=== PATIENT | female | born 1985 | race Caucasian/White ===

== ENCOUNTER 2017-05-15 09:35 | Day surgery (SDC) | payer SELFPAY ==
[2017-05-10 11:51] VITALS: BMI 31.4
[2017-05-15 10:22] LABS: BASO # 0.03 K/mm3 (0.0-2.0); BASO % 0.5 % (0.0-3.0); EOS # 0.4 (0.0-0.7); GRAN # 3.09 (1.4-6.5); GRAN % 51.2 % (50.0-68.0); HEMATOCRIT 39.5 % (36.0-48.0); LYMPH # 2.1 (1.2-3.4); LYMPH % 34.8 % (22.0-35.0); MEAN CELL VOLUME 84.6 fl (80.0-105.0); MEAN CORPUSCULAR HEMOGLOBIN 29.1 pg (25.0-35.0); MEAN CORPUSCULAR HGB CONC 34.4 g/dl (31.0-37.0); MEAN PLATELET VOLUME 9.6 fl (7.0-11.0); MONO # 0.4 (0.1-0.6); MONO % 6.5 % (1.0-6.0); RED CELL DISTRIBUTION WIDTH 13.4 % (11.5-14.5)
[2017-05-15 10:28] LABS: BLOOD UREA NITROGEN 11 mg/dL (7-21); CALCIUM 9.1 mg/dL (8.4-10.5); CARBON DIOXIDE 28 mmol/L (21-33); CHLORIDE 104 mmol/L (98-107); GFR AFRICAN-AMERICAN > 60; GLUCOSE,RANDOM 90 mg/dL (70-110); INR 0.99 (0.93-1.08); POTASSIUM 4.6 mmol/L (3.6-5.0); SODIUM 142 mmol/L (132-148)
--- NOTE | 2017-05-15 10:32 | CP.SDSHP ---
Same Day Surgery H & P - History Proposed Procedure: ct guided thyroid Bx. Pre-Op Diagnosis: multinodular goiter. - Previous Medical/Surgical History Misc: Other (c/section.) Pain: 0. No Pain - Allergies Allergies: Allergies florence Allergy (Severe, Verified 05/10/17 11:51) ITCHING - Physical Exam General Appearance: WNL. Vital Signs: Vital Signs 05/15/17 09:50 Temperature 98.4 F Pulse Rate 60 Respiratory 20 Rate Blood Pressure 138/62 O2 Sat by Pulse 98 Oximetry Mental Status: Alert & Oriented x3 Neuro: WNL Heart: WNL Lungs: WNL GI: WNL - Date & Time Date: 05/15/17 Time: 10:32 Short Stay Discharge - Short Stay Discharge Admitting Diagnosis/Reason for Visit: THYROID NODULE Disposition: HOME/ ROUTINE Referrals: Favian Rodriguez MD [Primary Care Provider] -
[2017-05-15] MEDS ORDERED: Midazolam 2 MG/2 ML VIAL ONE (10:52)
[2017-05-15] MEDS ORDERED: Oxycodone/Acetaminophen 5/325 mg Tab PO PRN (11:35)
[2017-05-15] MEDS ORDERED: Sodium Chloride 0.45% 1,000 ML IV SCH (11:45)
[2017-05-15 12:51] VITALS: RESP 20; TEMP 97.8
[2017-05-15 13:14] VITALS: BP 110/72; PULSE 66; O2SAT 98
--- NOTE | 2017-05-15 19:10 | US ---
PROCEDURE: Ultrasound-guided left thyroid fine needle aspiration biopsy. CLINICAL HISTORY: Goiter with multiple bilateral nodules. Dominant 4 cm left thyroid nodule. PHYSICIAN(S): Prashanth Wise M.D. TECHNIQUE: The relative risks and indications for the procedure were explained to the patient through a book jogger and consent obtained. The patient was placed supine on the stretcher with the neck extended and preliminary sonography of the thyroid performed. This revealed a diffusely enlarged thyroid with multiple large nodules. The dominant 4 cm nodules noted on the left. The neck was prepped and draped in the usual sterile fashion. Conscious sedation and monitoring were provided throughout the procedure by a nurse. 1% Xylocaine was used to anesthetize the skin and soft tissues at the access site. Three passes with a 22-gauge needle were performed under ultrasound guidance for fine needle aspiration of the 4 cm heterogeneous nodule in the left thyroid. The slides were reviewed by pathology and deemed adequate. The patient tolerated the procedure well. IMPRESSION: 1. Ultrasound guided fine needle aspiration of a 4 cm heterogeneousnodule in the left thyroid.
== END 2017-05-15 13:20 | disposition home or self-care (01) ==
LOC: SDS 09:35
PROVIDERS: ATTEND Radiology Vascular & Interventional Radiology
DX: E04.1 Nontoxic single thyroid nodule (principal)
CPT/HCPCS: 10022; 36415; 80048; 84703; 85025; 85610; 85730; 88108; 88305; J2250; J2405; J3010; J7030